=== PATIENT | male | born 1975 | race Caucasian/White ===

== ENCOUNTER 2017-01-30 10:30 | Emergency (ER) | payer BC, OTHER ==
[2017-01-30 10:47] VITALS: BP 143/95
--- NOTE | 2017-01-30 12:16 | ED Physician Documentation ---
PD HPI LOWER EXT INJURY - Stated complaint Stated Complaint: R KNEE PX - Chief complaint Chief Complaint: Ext Problem - History obtained from History obtained from: Patient - History of Present Illness PD HPI LOW EXT INJURY LOCATION: Right, Knee Type of injury: No: Fall, Twist, Blunt / blow Timing - onset: Yesterday Timing - details: Abrupt onset, Still present Worsened by: Moving, Palpating Associated symptoms: Swelling, Discolored (some redness anteriorly). No: Weakness, Numbness Similar symptoms before: Diagnosis (has not had gout in the knee but has in ankle and great toe and this feeling similar.) Review of Systems Constitutional: denies: Fever, Chills Cardiac: denies: Chest pain / pressure Respiratory: denies: Dyspnea, Cough GI: denies: Nausea, Vomiting, Diarrhea : denies: Dysuria, Frequency Skin: denies: Rash, Lesions, Abrasion (s), Laceration (s) Neurologic: denies: Focal weakness, Numbness PD PAST MEDICAL HISTORY - Past Medical History Past Medical History: Yes Musculoskeletal: Gout - Past Surgical History Past Surgical History: Yes General: Other - Present Medications Home Medications: Ambulatory Orders Medication Instructions Recorded Confirmed Colchicine 0.6 mg PO TID #15 capsule 01/30/17 Dexamethasone [Decadron] 4 mg PO DAILY #5 tablet 01/30/17 HYDROcod/ACETAM 5/325 [[place] 5/325] 1 tab PO Q6H PRN #15 tablet 01/30/17 Indomethacin 25 mg PO BID #30 capsule 01/30/17 - Allergies Allergies/Adverse Reactions: Allergies Allergy/AdvReac Type Severity Reaction Status Date / Time No Known Drug Allergies Allergy Verified 01/30/17 11:22 - Social History Does the pt smoke?: No Smoking Status: Never smoker Does the pt drink ETOH?: No Does the pt have substance abuse?: No - Family History Family history: denies: Venous thromboembolism - Immunizations Immunizations are current?: Yes - POLST Patient has POLST: No PD ED PE NORMAL - Vitals Vital signs reviewed: Yes - General General: Alert and oriented X 3, No acute distress, Well developed/nourished - Derm Derm: Normal color, Warm and dry - Extremities Extremities: Other (right knee without effusion. It does have some redness, no calor. Tender anteriorly and medially. ) - Neuro Neuro: Alert and oriented X 3, No motor deficit, No sensory deficit, Normal speech Results - Vitals Vitals: Oxygen O2 Source Room air Departure - Departure Disposition: 01 Home, Self Care Clinical Impression: Exacerbation of gout Knee pain, acute Qualifiers: Laterality: right Qualified Code(s): M25.561 - Pain in right knee Condition: Stable Record reviewed to determine appropriate education?: Yes Instructions: ED Arthritis Gout Prescriptions: Colchicine 0.6 mg PO TID #15 capsule Dexamethasone [Decadron] 4 mg PO DAILY #5 tablet HYDROcod/ACETAM 5/325 [[place] 5/325] 1 tab PO Q6H PRN #15 tablet PRN Reason: Pain Indomethacin 25 mg PO BID #30 capsule Comments: Drink lots of fluids. Use crutches as needed to reduce pain of weightbearing and motion. Progress use as able once is feeling better. Indomethacin twice daily for the next week or so. Decadron daily for 5 days. These are both anti- inflammatories. Colchicine 2-3 times a day for the next few days until improved to reduce crystallization and promote uric acid clearing. Add Tylenol or hydrocodone if needed for pain. Recheck if not improved over the next 2-3 days. He may take 5 or 6 days to fully resolve. Discharge Date/Time: 01/30/17 12:53
[2017-01-30] MEDS ORDERED: DEXAMETHASONE 10 MG/ML VIAL PO STA (12:30)
[2017-01-30] MEDS ORDERED: HYDROcod/ACETAM 5/325 MG TABLET PO STA (12:31)
[2017-01-30] MEDS ORDERED: NAPROXEN 250 MG TABLET PO STA (12:31)
[2017-01-30] MEDS ORDERED: COLCHICINE 0.6 MG TABLET PO STA (12:31)
[2017-01-30] MEDS ORDERED: NAPROXEN 250 MG TABLET PO ONE (12:42)
[2017-01-30] MEDS ORDERED: HYDROcod/ACETAM 5/325 MG TABLET ONE (12:42)
[2017-01-30] MEDS ORDERED: COLCHICINE 0.6 MG TABLET PO ONE (12:42)
[2017-01-30] MEDS ORDERED: DEXAMETHASONE 10 MG/ML VIAL ONE (12:42)
== END 2017-01-30 12:53 | disposition home or self-care (01) ==
LOC: ED 10:30
DX: M10.9 Gout, unspecified (principal); M25.561 Pain in right knee
CPT/HCPCS: 99283; A9270